=== PATIENT | female | born 1960 | race Caucasian/White ===

== ENCOUNTER 2017-09-17 08:33 | Emergency (ER) | payer BC | END 2017-09-17 10:15 | disposition home or self-care (01) | LOC: E/R 08:33 | DX: H66.91 Otitis media, unspecified, right ear (principal) | CPT/HCPCS: 99283; Z7502 ==

== ENCOUNTER 2018-06-22 12:47 | Emergency (ER) | payer BC ==
[2018-06-22] MEDS: ACETAMINOPHEN 500 MG TAB PO (14:23)
[2018-06-22] MEDS: IBUPROFEN 600 MG TAB PO (14:23)
== END 2018-06-22 15:48 | disposition home or self-care (01) ==
LOC: FTE 12:47
DX: J00 Acute nasopharyngitis [common cold] (principal); R40.2412 Glasgow coma scale score 13-15, at arrival to emergency department
CPT/HCPCS: 99282; Z7502

== ENCOUNTER 2018-06-24 09:14 | Emergency (ER) | payer BC ==
[2018-06-24] MEDS: ACETAMINOPHEN 325 MG TAB PO (09:35)
[2018-06-24] MEDS: CEFTRIAXONE 1 GM INJ IM (10:08)
[2018-06-24] MEDS: LIDOCAINE 1% (MPF) 5 ML VIAL SC (10:08)
== END 2018-06-24 10:25 | disposition home or self-care (01) ==
LOC: FTE 09:14
DX: J18.1 Lobar pneumonia, unspecified organism (principal); J06.9 Acute upper respiratory infection, unspecified
CPT/HCPCS: 71045; 96372; 99284-25

== ENCOUNTER 2018-11-20 09:23 | Emergency (ER) | payer BC ==
[2018-11-20 11:17] LABS: URINE BLOOD (Dip) POC Trace-intact (NEGATIVE); URINE GLUCOSE (Dip) POC Negative (NEGATIVE); URINE KETONES (Dip) POC Negative (NEGATIVE); URINE LEUKOCYTE EST (Dip) POC Negative (NEGATIVE); URINE NITRITE (Dip) POC Negative (NEGATIVE); URINE TOTAL PROTEIN POC Negative (NEGATIVE)
== END 2018-11-20 12:21 | disposition home or self-care (01) ==
LOC: FTE 09:23
DX: R30.0 Dysuria (principal)
CPT/HCPCS: 81003; 87086; 99283

== ENCOUNTER 2018-12-14 11:01 | Emergency (ER) | payer BC ==
[2018-12-14] MEDS: IBUPROFEN 600 MG TAB PO (11:21)
== END 2018-12-14 11:30 | disposition home or self-care (01) ==
LOC: FTE 11:01
DX: M54.5 Low back pain (principal); M62.830 Muscle spasm of back
CPT/HCPCS: 99283; Z7502

== ENCOUNTER 2019-01-05 11:37 | Emergency (ER) | payer BC | END 2019-01-05 12:25 | disposition home or self-care (01) | LOC: E/R 11:37 | DX: F41.9 Anxiety disorder, unspecified (principal) | CPT/HCPCS: 93005; 99283-25 ==